=== PATIENT | male | born 1940 | race Caucasian/White ===

== ENCOUNTER → 2022-07-16 | Day surgery (SDC) | payer MEDICARE, OTHER ==
[~2022-07-16] VITALS: Ht 170.2 cm; Wt 96.3 kg
[~2022-07-16] MED LIST: ALBUTEROL SULFATE 2.5 MG/0.5 ML NEB SOLUTION NEB ONE; ALLO-45 PO; ATOR10TA PO; BENZOCAINE 20% 50 MCG/SPRAY 57 GM TP ONE; CLOP75TA60 PO; DULA1.5P SQ; FURO80 PO; FentaNYL CITRATE PF 100 MCG/2 ML VIAL ONE; GABA-1181 PO; LIDOCAINE 2% 11 ML JELLY TP ONE; METO25 PO; MIDAZOLAM HCL 2 MG/2 ML VIAL ONE; MethylPREDNISolone SOD SUCC 125 MG/2 ML VIAL IVP ONE; MethylPREDNISolone SOD SUCC 125 MG/2 ML VIAL ONE; OMEP10 PO; OXYGEN THERAPY IH SCH; SODIUM CHLORIDE 0.9% 1,000 ML IV ONE; TAMS-13 PO
[2022-07-16 06:40] LABS: COVID AG,FIA SOURCE NASAL SWAB
[2022-07-16 08:11] LABS: GLUCOMETER DEV NAME(LOC) SDS.; GLUCOSE,POINT OF CARE 127 MG/DL (70-110)
== END | disposition home or self-care (01) ==
LOC: SURGERY 06:08
PROVIDERS: ATTEND Internal Medicine Critical Care Medicine
DX: J38.4 Edema of larynx (principal); B37.0 Candidal stomatitis; J39.8 Other specified diseases of upper respiratory tract; Z20.822 Contact with and (suspected) exposure to COVID-19; Z79.899 Other long term (current) drug therapy; Z87.891 Personal history of nicotine dependence; I25.2 Old myocardial infarction; Z90.5 Acquired absence of kidney; Z98.890 Other specified postprocedural states
CPT/HCPCS: 88112; 82962; 87206; 87101; 87220; 87070; 93005; 31623; 31624; 94640; 71045; 87015; 87426; J3010; J2250; J2930; Q9967; C9803; 88108; J7613